=== PATIENT | male | born 1980 | race Caucasian/White ===

== ENCOUNTER 2017-01-27 11:34 | Day surgery (SDC) | payer SELFPAY ==
[2017-01-27 11:39] VITALS: BMI 25.8
[2017-01-27] MEDS ORDERED: SODIUM CHLORIDE 1,000 ML IV STA ×2 (12:01→12:42)
--- NOTE | 2017-01-27 12:02 | PDOC ---
History of Present Illness - General Chief Complaint: Pain, Acute Stated Complaint: ABDOMINAL PAIN Time Seen by Provider: 01/27/17 12:00 - History of Present Illness Initial Comments: 01/27/17 12:19 Chief complaint: Abdominal pain History of present illness: After eating macaroni and cheese, beef sliders that were well cooked at a restaurant last night, the patient came home and had one episode of watery diarrhea. He awoke at 2 AM with nausea, vomited several times , bilious fluid without blood, and noted persistent midabdominal pain. The nausea and pain rest O present upon arrival in the emergency room. Review of systems: No fever/chills, headache, sore throat, URI symptoms, cough, chest pain, shortness of breath, visual or focal neurologic symptoms, unsteadiness of gait, back pain, urinary tract symptoms including dysuria or frequency urgency hesitancy or hematuria. Past medical history: The patient is a healthy male with a history of only intermittent elevated blood pressure for which he takes no medication. He has had no significant GI disease or surgery in the past. 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 Smokes cigarettes intermittently, occasional social alcohol, none recently, no nonprescription drugs Family history: Reviewed and noncontributory including early coronary artery disease, metabolic disease including diabetes, GI disease, and cancer. Physical exam: Alert and oriented well-developed well-nourished no acute distress cooperative Afebrile, vital signs normal No pallor or icterus. PERRLA, ENT clear Neck supple without bruit mass or nodes Chest clear to P&A CV regular without murmur rub or gallop Abdomen nondistended. Bowel sounds hypoactive but present. Normal in character. Mild diffuse tenderness in the periumbilical region, with a sense of localization in the right lower quadrant. There is no guarding or rebound. No CVAT. testes descended no masses or tenderness no hernias Skin clear, no rash, adequate turgor and what mucous membranes Extremities no CCE Neurological intact Impression: Possibilities include gastroenteritis and early appendicitis. On examination, the pain appears to localize in the right lower quadrant, though findings are limited to mild tenderness without guarding or rebound Plan: CBC, chemistries, lipase, urinalysis. Further evaluation depending on results. Antiemetic. Past History - Past Medical History Allergies/Adverse Reactions: Allergies Allergy/AdvReac Type Severity Reaction Status Date / Time No Known Allergies Allergy Verified 01/27/17 11:36 Home Medications: Ambulatory Orders NK [No Known Home Medication] 01/27/17 Other medical history: PT DENIES - Psycho/Social/Smoking Cessation Hx Anxiety: No Suicidal Ideation: No Smoking History: Current some day smoker Number of Cigarettes Smoked Daily: 1 Information on smoking cessation initiated: No Hx Alcohol Use: Yes (OCCASIONALLY) Drug/Substance Use Hx: No Substance Use Type: None *Physical Exam - Vital Signs Last Vital Signs Temp Pulse Resp BP Pulse Ox 97.8 F 54 L 18 153/99 100 01/27/17 11:35 01/27/17 11:35 01/27/17 11:35 01/27/17 11:35 01/27/17 11:35 ED Treatment Course - LABORATORY CBC & Chemistry Diagram: 01/27/17 12:00 01/27/17 12:00 Medical Decision Making - Medical Decision Making 01/27/17 15:29 White blood count 15,000. CT of the abdomen and pelvis reveals acute appendicitis with multiple appendicoliths. Patient and family informed, recommended surgery. Dr. Trejo paged for consultation. Antibiotics administered. Spoke with Dr. Trejo by phone. Agrees to admit to his service and will arrange for surgery as soon as possible. He is aware that the patient has received intravenous antibiotics and analgesics. *DC/Admit/Observation/Transfer Diagnosis at time of Disposition: Acute appendicitis Qualifiers: Acute appendicitis type: with localized peritonitis Qualified Code(s): K35.3 - Acute appendicitis with localized peritonitis - Discharge Dispostion Condition at time of disposition: Fair Admit: Yes
[2017-01-27] MEDS ORDERED: ONDANSETRON 4 MG/2 ML VIAL IVPB ONE ×2 (12:15→14:03)
[2017-01-27 12:30] LABS: BASOPHIL 0.6 % (0-2.0); EOSINOPHIL 0.1 % (0-4.5); MCH 29.4 pg (25.7-33.7); MCHC 33.8 g/dl (32.0-35.9); MEAN CELL VOLUME 86.9 fl (80-96); NEUTROPHILS 90.8 % (42.8-82.8); PLATELET COUNT 249 K/MM3 (134-434); RDW 12.6 % (11.9-15.9)
[2017-01-27 12:44] LABS: ALBUMIN 4.8 g/dl (3.5-5.0); ALK PHOS 48 U/L (32-92); ANION GAP 11 (8-16); BILIRUBIN,TOTAL 1.1 mg/dl (0.2-1.0); CALCIUM 9.7 mg/dl (8.4-10.2); CO2 25 mmol/L (22-28); GLUCOSE,RANDOM 115 mg/dl (74-106); SGOT/AST 20 U/L (10-42); SGPT/ALT 22 U/L (10-40); TOT PROT 7.7 g/dl (6.4-8.3)
[2017-01-27] MEDS ORDERED: PIPERACILLIN/TAZOB 3.375 GM 3.375 GM in DEXTROSE 5%-WATER - 50 ML IVPB ONE (15:21)
[2017-01-27] MEDS ORDERED: morphine CARPU-JECT 4 MG/1 ML DISP.SYRIN IVPUSH ONE (15:24)
[2017-01-27] MEDS ORDERED: morphine CARPU-JECT 10 MG/1 ML DISP.SYRIN ONE (15:25)
[2017-01-27] MEDS ORDERED: PIPERACILLIN/TAZOBACTAM 3.375 GM VIAL IVPB ONE (15:25)
[2017-01-27 15:55] LABS: PH,URINE 5.5 (4.5-8); URINE APPEARANCE Clear; URINE BILIRUBIN Negative (NEGATIVE); URINE GLUCOSE (UA) Negative (NEGATIVE); URINE KETONE 4+ (NEGATIVE); URINE LEUK ESTERASE Negative (NEGATIVE); URINE NITRITE Negative (NEGATIVE); URINE UROBILINOGEN 0.2 E.U/dl (0.2-1.0)
[2017-01-27 16:00] LABS: URINE COLOR YELLOW; URINE PROTEIN TRACE (NEGATIVE)
[2017-01-27 16:04] LABS: URINE BLOOD TRACE (NEGATIVE); URINE RBC 0-3 /hpf (0-3); URINE WBC 0-3 (3-5)
[2017-01-27 16:05] LABS: URINE BACTERIA FEW /hpf (NEGATIVE); URINE HYALINE CAST 0-3 /lpf
--- NOTE | 2017-01-27 17:21 | HP ---
Admitting History and Physical - Admission Chief Complaint: abdominal pain History of Present Illness: 36 y/o w/male presented w/ 24 hours of nausea/vomiting/abdominal pain periumbilical now localized to the RLQ; pian worse w/moving' less w/laying still ; no Gu/GI c/o o/w; no previous surgery; he came to the ER for evaluation; w/u reveals acute appendicitis. History Source: Patient Limitations to Obtaining History: No Limitations - Past Medical History ABRASIVE BAND WINDER: No: Alzheimer's, CVA, Dementia, Migraine, Multiple Sclerosis, Peripheral Neuropathy, Parkinson's, Seizure, Syncope, TIA, Vertigo, Other - Smoking History Smoking history: Current some day smoker Have you smoked in the past 12 months: Yes Aproximately how many cigarettes per day: 1 - Alcohol/Substance Use Hx Alcohol Use: Yes (OCCASIONALLY) History of Substance Use: denies: None, Cocaine, Heroin, Marijuana, Prescription , Tranquilizers - Social History ADL: Independent Occupation: nurse History of Recent Travel: No Other Social History: none Home Medications - Allergies Allergies/Adverse Reactions: Allergies Allergy/AdvReac Type Severity Reaction Status Date / Time beeswax AdvReac Swelling Verified 01/27/17 17:05 - Home Medications Home Medications: Ambulatory Orders NK [No Known Home Medication] 01/27/17 Physical Examination Vital Signs: Vital Signs Temperature 97.8 F 01/27/17 11:35 Pulse Rate 56 L 01/27/17 15:40 Respiratory Rate 18 01/27/17 15:40 Blood Pressure 139/74 01/27/17 15:40 O2 Sat by Pulse Oximetry (%) 100 01/27/17 15:40 Constitutional: Yes: Well Nourished, No Distress Eyes: Yes: WNL HENT: Yes: WNL Neck: Yes: WNL Cardiovascular: Yes: WNL Respiratory: Yes: WNL Gastrointestinal: Yes: Soft, Hernia (supraumbilical; reducible), Tenderness, Rebound (RLQ; Rovsings and psoas signs are positive.) ...Rectal Exam: Yes: WNL, Deferred Renal/: Yes: WNL Breast(s): Yes: WNL Musculoskeletal: Yes: WNL Extremities: Yes: WNL Edema: No Peripheral Pulses WNL: Yes Integumentary: Yes: WNL Neurological: Yes: WNL ...Motor Strength: WNL Labs: CBC, BMP 01/27/17 12:00 01/27/17 12:00 Imaging - Results Cat Scan: Image Reviewed (acute appendicitis; fecalith) Assessment/Plan acute appendicitis; for lap appendectomy possible open; r/b/t/alternatives d/w the patient and informed consent obtained. Visit type - Emergency Visit Emergency Visit: Yes Care time: The patient presented to the Emergency Department on the above date and was hospitalized for further evaluation of their emergent condition. - New Patient This patient is new to me today: Yes Date on this admission: 01/27/17 - Critical Care Critical Care patient: No
[2017-01-27 17:35] LABS: INR 1.08 (0.82-1.09); PROTHROMBIN TIME (PATIENT) 12.1 SEC (10.2-13.0)
[2017-01-27] MEDS ORDERED: MIDAZOLAM HCL 2 MG/2 ML SINGLE DOSE VIAL ONE (18:15)
[2017-01-27] MEDS ORDERED: DEXAMETHASONE SOD PHOSPHATE 4 MG/1 ML VIAL ONE (18:26)
[2017-01-27] MEDS ORDERED: ONDANSETRON 4 MG/2 ML VIAL ONE (18:26)
[2017-01-27] MEDS ORDERED: PROPOFOL 20 ML ONE (18:26)
[2017-01-27] MEDS ORDERED: ceFAZolin SODIUM 1 GM VIAL ONE (18:26)
[2017-01-27] MEDS ORDERED: SUCCINYLCHOLINE CHLORIDE 200 MG/10 ML VIAL ONE (18:26)
[2017-01-27] MEDS ORDERED: ROCURONIUM BROMIDE 50 MG/5 ML VIAL ONE (18:26)
[2017-01-27] MEDS ORDERED: DESFLURANE GAS 240 ML BOTTLE IH ONE (18:37)
[2017-01-27] MEDS ORDERED: KETOROLAC TROMETHAMINE 30 MG/1 ML VIAL ONE (19:03)
[2017-01-27] MEDS ORDERED: BUPIVACAINE HCL/PF 0.5% (5MG/ML) 10 ML VIAL IJ ONE (19:16)
[2017-01-27] MEDS ORDERED: NEOSTIGMINE METHYLSULFATE 0.5 MG/ML - 10 ML MDV ONE (19:26)
[2017-01-27] MEDS ORDERED: GLYCOPYRROLATE 0.2 MG/1 ML VIAL ONE (19:26)
--- NOTE | 2017-01-27 19:41 | OP ---
Operative Note - Note: Operative Date: 01/27/17 Pre-Operative Diagnosis: Acute appendicitis Operation: Laparoscopic appendectomy Post-Operative Diagnosis: Same as Pre-op Surgeon: Donnell Trejo Insurance Account Specialist: Ashwin Looney Anesthesiologist/HEALTH INFORMATION MANAGER: Art England Anesthesia: General Specimens Removed: Appendix Estimated Blood Loss (mls): 5 Fluid Volume Replaced (mls): 700 Operative Report Dictated: Yes
--- NOTE | 2017-01-27 19:42 | SURG ---
Surgery Trade Facilitator Note Trade Facilitator: Ashwin Looney PA-C Date of Service: 01/27/17 Diagnosis: Acute appendicitis Procedure: Laparoscopic appendectomy I was present for the entirety of the operative procedure. For further detail, please refer to operative report. Visit type - Case Type Case Type: ED Admission - Emergency Emergency Visit: Yes Care time: The patient presented to the Emergency Department on the above date and was hospitalized for further evaluation of their emergent condition. - New patient This patient is new to me today: Yes Date on this admission: 01/27/17
[2017-01-27] MEDS ORDERED: ACETAMINOPHEN 1000 MG/100 ML VIAL (NON FORMULARY) IVPB PRN (19:43)
[2017-01-27] MEDS ORDERED: HYDROmorphone HCL CARPU-JECT 2 MG/1 ML DISP.SYRIN IVPB PRN (19:44)
[2017-01-28 06:36] VITALS: BP 108/48; PULSE 83; TEMP 98
[2017-01-28] MEDS ORDERED: ACETAMINOPHEN 325 MG TABLET (FP) PO PRN (08:04)
[2017-01-28] MEDS ORDERED: oxyCODONE HCL 5 MG TABLET PO PRN (08:05)
--- NOTE | 2017-01-28 08:11 | PN ---
Progress Note (short form) - Note Progress Note: Patient seen and examined. Patient states he is doing well and feels much better than yesterday. He reports some soreness, but pain is controlled. He has not had anything to eat or drink yet. He is ambulating and urinating without issue. He denies fever, chills, nausea, vomiting. Last Vital Signs Temp Pulse Resp BP Pulse Ox 98.0 F 83 18 108/48 99 01/28/17 06:34 01/28/17 06:34 01/28/17 06:34 01/28/17 06:34 01/28/17 06:34 Exam: Gen: NAD, pleasant and cooperative Cardio: RRR Resp: CTA Abd: soft, nondistended, mild tenderness around port sites and RLQ, port site incisions clean, dry, intact LE: soft, nontender <Rakel Kennedy - Last Filed: 01/28/17 08:06> - Note Progress Note: Attending Surgeon POD #1 Patient seen and evaluated; concur w/ a/p as outlined by the PA; for d/c later today and OPD f/u next week. Donnell Trejo MD FACS <Donnell Trejo - Last Filed: 01/28/17 08:28> Problem List - Problems (1) Acute appendicitis Assessment/Plan: POD#1 s/p laparoscopic appendectomy Pain controlled, continue pain control with oral medications Clear liquid diet ordered for this morning, advance to regular diet for lunch DC IV when tolerating PO Ambulate Will likely discharge home when tolerating diet Patient discussed with Dr. Trejo and agrees Code(s): K35.80 - UNSPECIFIED ACUTE APPENDICITIS Qualifiers: Acute appendicitis type: with localized peritonitis Qualified Code(s ): K35.3 - Acute appendicitis with localized peritonitis <Rakel Kennedy - Last Filed: 01/28/17 08:06>
--- NOTE | 2017-01-28 09:41 | OP ---
DATE OF OPERATION: 01/27/2017 PREOPERATIVE DIAGNOSIS: Acute appendicitis. POSTOPERATIVE DIAGNOSIS: Acute appendicitis. PROCEDURE: Laparoscopic appendectomy. SURGEON: Donnell Trejo MD ECHO TECHNICIAN: EZIO Ashford ANESTHESIA: General. OPERATIVE FINDINGS: There was acute nonperforated appendicitis. The rest of the findings were unremarkable. PROCEDURE: The patient was placed on the operating table in the supine position and after the induction of general anesthesia and the placement of sequential compression devices on the patient's lower extremities the abdomen was prepped with ChloraPrep and draped in sterile fashion. A timeout was taken and pneumoperitoneum was established at the umbilicus using a Veress needle. After pressure of 15 mmHg was achieved, a 5-mm port was placed as well as a suprapubic 12-mm port and left lower quadrant 5-mm port. Laparoscopy was carried out and the previously noted findings were observed. The appendix was grasped and using the LigaSure device the mesoappendix sequentially divided and the base of the appendix at its junction with the cecum cleared. Once the blood supply was divided, the appendix was removed from the cecum using the Endo-KATIE stapling device. The appendix was placed in an EndoCatch and brought out through the suprapubic port. Pneumoperitoneum was reestablished. The appendiceal stump was unremarkable, without evidence of bleeding, and there were no fluid collections in the pelvis or right lower quadrant. All ports were then removed under laparoscopic vision without evidence of bleeding from the port sites and all port sites were infiltrated with 0.5% Marcaine. The fascia at the suprapubic port was closed with a single 0 Vicryl figure-of-8 suture. The skin edges were reapproximated with 4-0 Biosyn followed by Steri-Strips and Band-Aid dressings. The procedure was terminated at this point and the patient aroused from general anesthesia and transferred to the postanesthesia care unit in stable condition, awake and alert. ESTIMATED BLOOD LOSS: Minimal. DRAINS: None. SPECIMEN: Appendix to Pathology. I, Donnell Trejo, was physically present in the operating room from the time the patient was placed on the operating room table until he was transferred to the postanesthesia care unit in my accompaniment. Donnell Trejo MD /[id number]
--- NOTE | 2017-01-29 13:12 | PATH ---
Surgical Pathology Report Patient Name: MISSY GAINES [facility]. Rec. #: [id number] /Age/Gender: 1980 (Age: 36) / M Account: [id number] Location: [facility] AMBULATORY Taken: 01/27/2017 Received: 01/27/2017 Reported: 01/29/2017 Physicians: Rk Trejo MD Specimen(s) Received APPENDIX Clinical History Abdominal pain Final Diagnosis APPENDIX, APPENDECTOMY: ACUTE APPENDICITIS AND PERIAPPENDICITIS. Electronically Signed Martin Michael M.D. Gross Description Received in formalin, labeled "appendix," is a 6 cm. in length vermiform appendix with a stapled margin of resection and moderate attached fat. The serosa is lozada-french and smooth. Sectioning reveals a dilated lumen containing brown fecal material. The wall of the appendix averages 0.1 cm. in thickness. Kn[employer] Good[employer] Washer sections are submitted in one cassette. /01/28/2017 saudi01/28/2017
--- NOTE | 2017-02-02 10:02 | EKG ---
Test Reason : Blood Pressure : / mmHG Vent. Rate : 051 BPM Atrial Rate : 051 BPM P-R Int : 128 ms QRS Dur : 112 ms QT Int : 458 ms P-R-T Axes : 098 079 079 degrees QTc Int : 422 ms POOR DATA QUALITY, INTERPRETATION MAY BE ADVERSELY AFFECTED SINUS BRADYCARDIA INCOMPLETE RIGHT BUNDLE BRANCH BLOCK NO PREVIOUS ECGS AVAILABLE Confirmed by MD YOUNG MARJORY ([id number]) on 02/02/2017 10:02:09 AM Referred By: MD LAWS Confirmed By:BOB YOUNG MD
== END 2017-01-28 01:30 | disposition home or self-care (01) ==
LOC: FER 11:34 → FM/S 17:18 → FASU 20:39 → FM/S 20:50 → FASU 01-28 01:30
PROVIDERS: ATTEND Surgery
PROC: 0DTJ4ZZ Resection of Appendix, Percutaneous Endoscopic Approach (ICD-10-PCS; principal; 2017-01-27 18:41)
DX: K35.80 Unspecified acute appendicitis (principal); Z72.0 Tobacco use
CPT/HCPCS: 36415; 71010-TC; 74177-TC; 80053; 81003; 81015; 83690; 85025; 85610; 86850; 86900; 86901; 88304-TC; 93005; 94760; 95827; 99283-25

== ENCOUNTER 2022-07-16 04:32 | Day surgery (SDC) | payer OTHER ==
[2022-07-14 14:23] VITALS: BMI 24.3
[2022-07-16 11:11] VITALS: TEMP 98.2
[2022-07-16 14:23] VITALS: BP 126/76; PULSE 72; RESP 20
== END 2022-07-16 14:20 | disposition home or self-care (01) ==
LOC: JASU-ENDO 04:32
PROVIDERS: ATTEND Internal Medicine Gastroenterology
PROC: 0DBL8ZX Excision of Transverse Colon, Via Natural or Artificial Opening Endoscopic, Diagnostic (ICD-10-PCS; principal; 2022-07-16 12:00)
DX: Z12.11 Encounter for screening for malignant neoplasm of colon (principal); D12.3 Benign neoplasm of transverse colon; K57.30 Diverticulosis of large intestine without perforation or abscess without bleeding; K64.8 Other hemorrhoids; Z83.71 Family history of colonic polyps
CPT/HCPCS: 88305-TC